=== PATIENT | female | born 1990 | race Caucasian/White ===

== ENCOUNTER 2023-04-09 09:47 | Emergency (ER) | payer OTHER, SELFPAY ==
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
[2023-04-09 09:51] VITALS: BP 146/100; PULSE 85; O2SAT 98
[2023-04-09 09:58] VITALS: BP 137/89; PULSE 75; RESP 18; TEMP 36.4; O2SAT 96; BMI 32.9
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
--- NOTE | 2023-04-09 11:37 | PC.NURSE ---
pt has made multiple attempts to urinate for preg test- hands and dial inspector asked to draw blood as pt unable to urinate- pt declined blood to rn- hands and dial inspector talking w pt to emphasize the importance of testing and need for this. hands and dial inspector at bedside aware pt drowsy. talking.
--- NOTE | 2023-04-09 11:55 | PC.NURSE ---
pt remains unable to urinate in bed graham after raising bed per machine tool dresser aleja order- pt walked to bathroom per machine tool dresser aleja w collar on as pt state will not be able to urinate w/o walking.
--- NOTE | 2023-04-09 12:09 | PC.NURSE ---
ct called to notify urine pending
[2023-04-09 12:27] LABS: UPreg QC Valid YES; Urine Pregnancy NEGATIVE (NEGATIVE)
== END 2023-04-09 14:31 | disposition home or self-care (01) ==
PROVIDERS: Nurse Practitioner Family; Emergency Provider Emergency Medicine; PCP Internal Medicine
DX: S80.212A Abrasion, left knee, initial encounter (principal); S06.0X0A Concussion without loss of consciousness, initial encounter; S50.812A Abrasion of left forearm, initial encounter; R51.9 Headache, unspecified; M54.2 Cervicalgia; M25.562 Pain in left knee; V43.02XA Car driver injured in collision with other type car in nontraffic accident, initial encounter; Y93.9 Activity, unspecified; Y92.481 Parking lot as the place of occurrence of the external cause; Y99.9 Unspecified external cause status; Z79.899 Other long term (current) drug therapy
CPT/HCPCS: 70450; 72125; 73090; 73560; 81025; 99282; 99284

== ENCOUNTER 2024-04-21 19:29 | Emergency (ER) | payer OTHER, SELFPAY ==
[2024-04-21 19:48] VITALS: BP 143/90; PULSE 110; RESP 18; TEMP 36.8; O2SAT 100; BMI 27.2
--- NOTE | 2024-04-21 19:53 | ED_ITS ---
HPI - General Adult General Chief complaint: Urogenital-Female Stated complaint: yeast inf Time Seen by Provider: 04/21/24 21:50 Source: patient, RN notes reviewed and old records reviewed Mode of arrival: ambulatory Limitations: no limitations History of Present Illness ED Provider: Gudelia LUI narrative: [age] female who denies any past medical history presents for evaluation of vaginal pain and swelling. Patient reports she initially had some itching with whitish discharge 2 days ago. She used an [id number] Monistat suppository She reports that she brought this a year ago but had a around the house. She use this 2 days ago pain She woke up this morning with painful, swollen labia. She reports worsening whitish discharge Denies any burning with urination. Denies any fevers, chills, abdominal pain Patient states that she had a miscarriage about 2 months ago. She has not been sexually active since then and at that time she was tested for sexually transmitted infections. Related Data Previous Rx's ?Medication ?Instructions ?Recorded cefuroxime axetil 500 mg tablet 500 mg PO BID #10 tabs 04/21/24 fluconazole 100 mg tablet 100 mg PO ONCE #1 tab 04/21/24 (Diflucan) Allergies Allergy/AdvReac Type Severity Reaction Status Date / Time tioconazole Allergy Swelling Verified 04/21/24 22:18 [From Monistat 1 (tioconazole)] Review of Systems Constitutional: Constitutional: Denies body ache(s), Denies chills and Denies fever(s) Eyes: Eyes: Denies blurry vision ENT: Denies sore throat Cardiovascular: Cardiovascular: Denies chest pain and Denies dyspnea Respiratory: Respiratory: Denies cough and Denies dyspnea Gastrointestinal: Gastrointestinal: Denies abdominal pain, Denies nausea and Denies vomiting Genitourinary: Genitourinary: Reports genital pruritis, Reports pelvic pain, Reports vaginal discharge and Reports vaginal pruritus Musculoskeletal: Musculoskeletal: Denies back pain Integumentary/Breasts: Skin/Breast: Denies rash PMFSH Social History Social History Advance Directives: No Advance Directives Information Provided: No Physical Exam ED Vital Signs: Vital Signs - 24 hr 04/21/24 19:48 04/21/24 22:34 Temperature 98.3 F 98.3 F Pulse Rate 110 H 110 H Respiratory Rate 18 18 Blood Pressure 143/90 H 143/90 H Pulse Oximetry 100 100 Oxygen Delivery Method Room Air Room Air BMI result Body Mass Index 27.2 Const General: healthy appearing, comfortable, no acute distress, alert and awake Nutritional Appearance: well nourished Orientation/consciousness: patient oriented x3 HENMT Head: Yes normocephalic and Yes atraumatic Eyes Eyelids: Yes eyelids normal Conjunctivae: conjunctivae normal Sclerae: sclerae normal Corneas: corneas normal Pupils: Equal, round and reactive pupils present EOM: EOMs intact bilaterally Neck Neck: Yes full ROM Resp Effort & Inspection: normal respiratory effort, able to speak in complete se ntences and not labored Cardio Rate: regular rate Rhythm: regular rhythm GI Inspection: No distended Palpation (GI): Soft to palpation, not firm, nontender, no guarding and not rigid Other: External exam shows edematous labia majora. There is minimal whitish vaginal discharge. No significant erythema, no evidence of abscess Skin General skin exam: elasticity normal Neuro General: patient oriented x3 Cranial nerves: Yes Equal, round and reactive pupils present and Yes Bilaterally intact EOM present Cognition (Neuro): normal cognition Extrem Other: Moving all extremities well without any obvious deformities Course Course Course Narrative: RME: done by [facility]. Que presents to the ED due to vaginal itching, white dischage, and vaginal swelling. Patient denies any vaginal bleeding, or vaginal lesion. UA ordered Medications Administered Discontinued Medications Generic Name Dose Route Start Last Admin Trade Name Freq PRN Reason Stop Dose Admin Cefuroxime Axetil 500 mg 04/21/24 22:11 04/21/24 22:20 Cefuroxime Axetil 500 Mg Tablet PO 04/21/24 22:12 500 mg ONCE ONE Administration Fluconazole 150 mg 04/21/24 22:11 04/21/24 22:19 Fluconazole 150 Mg Tablet PO 04/21/24 22:12 150 mg ONCE ONE Administration Metronidazole 2,000 mg 04/21/24 22:11 04/21/24 22:20 Metronidazole 500 Mg Tablet PO 04/21/24 22:12 2,000 mg ONCE ONE Administration Medical Decision Making Medical Decision Making MDM Narrative: 33-year-old female presents for evaluation of vaginal itching and discharge. She reports that she has not been sexually active since her last pelvic exam by her OBGYN and she was negative for sexually transmitted infections. She was offered a full pelvic examination but declines. She did allow for external inspection. This is consistent with vaginitis likely related to an allergic reaction of the Monistat. Patient's urinalysis shows greater than 50 white cells. We will treat with cefuroxime b.i.d. x5 days. The patient was given Diflucan today and another prescription for 1 week from today for she completes her antibiotics. She he has had this medication in the past without any allergic reaction. The patient was offered to swab herself for bacterial vaginosis versus just get treated for it and she does not want any swabs, she is willing to accept metronidazole 2 g once treatment for BV. Differential Diagnosis Differential Diagnoses: The differential diagnosis associated with the presentation includes Vaginitis Yeast infection He denies this UTI Bacterial vaginosis Lab Data Labs: Lab Results 04/21/24 Range/Units 20:27 Urine Color Yellow Urine Appearance Cloudy Urine pH 7.0 (5.0-9.0) Ur Specific [place] 1.025 (1.005-1.025) Urine Protein Trace (Neg-Trace) mg/dL Urine Glucose (UA) Negative (Negative) mg/dL Urine Ketones Negative (Negative) mg/dL Urine Blood Negative (Negative) Urine Nitrite Negative (Negative) Ur Leukocyte Esterase Large (3+) H (Negative) Urine RBC 6-10 H (0-2) /HPF Urine WBC >50 H (0-5) /HPF Ur Squamous Epith Cells 6-10 (0-2) /HPF Urine Bacteria None Seen (None Seen) Hyaline Casts 0-2 (0-2) /LPF Urine Test NEGATIVE (NEGATIVE) Discharge Plan Discharge Clinical Impression: Vaginitis, Urinary tract infection Patient Disposition: Home, Self-Care Instructions: Vaginal Discharge (ED) Additional Instructions: You were treated for bacterial vaginosis and a yeast infection The swelling is likely related to an allergic reaction from the Monistat I recommend that you no longer use Monistat Take the antibiotics as prescribed for urinary tract infection. Take Diflucan again 1 week from today to help treat and prevent further yeast infection You may also use Benadryl 25 mg every 6 hours to help with the swelling Follow-up with your primary doctor, return for new or worsening symptoms Prescriptions: New cefuroxime axetil 500 mg tablet 500 mg PO BID Qty: 10 0RF fluconazole [Diflucan] 100 mg tablet 100 mg PO ONCE Qty: 1 0RF Rx Instructions: To take on 04/28/24 Stand Alone Forms: Work/School Release Interventions: ED Discharge Assessment Last Done: 04/21/24 22:34 Discharge Date/Time: 04/21/24 22:34 Print Language: [place]
[2024-04-21 20:35] LABS: Appearance Urine Cloudy; Color Urine Yellow; Glucose Urine UA Negative (Negative); Leukocyte Esterase Urine Large (3+) (Negative); Nitrite Urine Negative (Negative); Specific Gravity - Urine 1.025 (1.005-1.025); UMIC TRIGGER UACC YES; Urine Blood Negative (Negative); Urine Ketones Negative (Negative); Urine Protein Trace mg/dL (Neg-Trace)
[2024-04-21 20:36] LABS: UPreg QC Valid YES; Urine Pregnancy NEGATIVE (NEGATIVE)
[2024-04-21 20:47] LABS: Bacteria Urine None Seen (None Seen); Hyaline Casts Urine 0-2 /LPF (0-2); UACC Culture Trigger YES; WBC Urine >50 /HPF (0-5)
[2024-04-21] MEDS: Fluconazole 150 MG TABLET PO (22:19)
[2024-04-21] MEDS: cefuroxime axetiL 500 MG TABLET PO (22:20)
[2024-04-21] MEDS: metroNIDAZOLE 500 MG TABLET 2000 MG PO (22:20)
[2024-04-21 22:34] VITALS: BP 143/90; PULSE 110; RESP 18; TEMP 36.8; O2SAT 100
== END 2024-04-21 22:34 | disposition home or self-care (01) ==
PROVIDERS: Physician Assistant; Emergency Provider Emergency Medicine
DX: N76.0 Acute vaginitis (principal); N39.0 Urinary tract infection, site not specified; L29.2 Pruritus vulvae; Z79.899 Other long term (current) drug therapy
CPT/HCPCS: 81001; 81025; 87086; 99282; 99283

== ENCOUNTER 2024-10-13 11:18 | Emergency (ER) | payer OTHER, SELFPAY ==
[2024-10-13] VITALS (8 sets, daily range): BP systolic 120–151; BP diastolic 71–101; PULSE 80–117; RESP 20–26; TEMP 36.7–37.1; O2SAT 94–98; BMI 28.7
--- NOTE | ~2024-10-13 | XR_ITS ---
CLINICAL HISTORY: sob, wheezing 2 view chest x-ray Comparison: None Findings: The lungs are clear. Normal size heart. No acute fracture. IMPRESSION: 1. No acute cardiopulmonary abnormality. This document has been electronically signed by: Janel Holder on 10/13/2024 12:34:46
--- NOTE | 2024-10-13 11:20 | ED.ASTHMA ---
HPI - Asthma General Chief Complaint: Dyspnea Stated Complaint: sob, asthma Time Seen by Provider: 10/13/24 11:41 Source: patient Mode of arrival: ambulatory Limitations: no limitations History of Present Illness ED Provider: Biju Kennedy DO HPI Narrative: 34-year-old female with history of moderate persistent asthma who ran out of her Flovent and albuterol 1 month ago but now has insurance who smokes cannabis is presenting for worsening shortness of breath and wheezing for the last couple of days. Patient also reports a cough occasionally productive of clear and yellow sputum. She reports mild chest pain only with the cough, otherwise denies chest pain or exertional symptoms. She denies fevers, rigors, lower extremities pain or swelling, abdominal pain, nausea, vomiting, diarrhea or any additional symptoms. No sick contacts. Patient has not followed with a vocational placement specialist recently. Related Data Previous Rx's ?Medication ?Instructions ?Recorded cefuroxime axetil 500 mg tablet 500 mg PO BID #10 tabs 04/21/24 fluconazole 100 mg tablet 100 mg PO ONCE #1 tab 04/21/24 (Diflucan) albuterol sulfate 90 mcg/actuation 2 puff inhalation Q4-6H PRN 10/13/24 aerosol inhaler shortness of breath or wheezing #8.5 grams fluticasone propionate 250 2 inh inhalation BID #60 ea 10/13/24 mcg/actuation blister powder for inhalation prednisone 50 mg tablet 50 mg PO DAILY 5 days #5 tabs 10/13/24 Allergies Allergy/AdvReac Type Severity Reaction Status Date / Time tioconazole Allergy Swelling Verified 10/13/24 11:22 [From Monistat 1 (tioconazole)] Review of Systems Review of Systems: Yes all other systems are reviewed and are negative PMFSH Social History Social History Advance Directives: Yes Advance Directives Information Provided: Yes Advance Directives on File: No Physical Exam Vital Signs: Vital Signs: Last Vital Signs Temp 98.1 F 10/13/24 11:59 Pulse 117 H 10/13/24 13:22 Resp 20 10/13/24 13:22 BP 120/94 H 10/13/24 11:59 Pulse Ox 98 10/13/24 11:59 O2 Del Method Room Air 10/13/24 11:59 BMI result Body Mass Index 28.7 Constitutional: ?Alert, oriented, speaking in full sentences HEENT: ?Normocephalic, atraumatic. Eyes: ?PERRL, EOMI Neck: ?Supple, nontender Chest: ?No chest wall tenderness Respiratory: ?Mild tachypnea, mild retractions of anterior chest wall, good air exchange with expiratory wheezing and prolonged expiratory phase throughout all lung gastelum Cardio: ?Regular rate and rhythm, no murmur, 2+ radial and DP pulses symmetrically GI: ?Soft, nondistended, nontender Back: ?Normal range of motion, nontender Skin: ?No rash, no lesions Neuro: ?Alert and oriented to person, place and time, moves all 4 extremities, no focal deficits Extremities: ?No swelling or tenderness, full range of motion Psych: ?Calm, alert and cooperative, appropriate behavior Course Course Course Narrative: This is a Rapid Medical Examination (RME) performed by Jackelyn Bacon PA-C in triage. Full HPI, ROS, assessment and treatment plan per primary provider in the Main ED. 34 yo female with history of moderate persistent asthma, marijuana smoker who presents to the ER for evaluation of worsening SOB and wheezing for the last 2 days. Recently ran out of her flovent and albuterol 1 month ago. Now has insurance. Saturating well on RA, mild tachypnea. Has bilateral inspiratory and expiratory wheezing on exam. Able to speak in complete sentences. Plan: CXR, viral swab. ED bronch protocol ordered. Medications Administered Discontinued Medications Generic Name Dose Route Start Last Admin Trade Name Freq PRN Reason Stop Dose Admin Albuterol Sulfate 5 mg/ 7.5 mg 10/13/24 12:05 10/13/24 12:11 Albuterol Sulfate 2.5 mg INHALE 10/13/24 12:06 7.5 mg ONCE ONE Administration Albuterol Sulfate 2 puff 10/13/24 12:40 10/13/24 12:46 Albuterol Sulfate 90 Mcg 8 Gm Inhaler INHALE 10/13/24 12:41 2 puff ONCE ONE Administration Albuterol Sulfate 5 mg/ 0 mg 10/13/24 11:44 10/13/24 11:50 Albuterol/Ipratropium 3 ml INHALE 10/13/24 11:45 7.5 each ONCE ONE Administration Albuterol Sulfate 2.5 mg/ 0 mg 10/13/24 13:18 10/13/24 13:20 Albuterol/Ipratropium 3 ml INHALE 10/13/24 13:19 5 dose ONCE ONE Administration Prednisone 50 mg 10/13/24 12:12 10/13/24 12:34 Prednisone 10 Mg Tablet PO 10/13/24 12:13 50 mg ONCE ONE Administration Medical Decision Making Medical Decision Making MDM Narrative: This is a well-appearing, pleasant patient presenting with signs and symptoms consistent with asthma exacerbation. I do not suspect PE, pneumonia or any other dangerous causes of dyspnea. The patient has bilateral expiratory wheezing with prolonged expiratory phase. She reports significant improvement with a DuoNeb and has been treated additionally with albuterol nebulizer. We will monitor for improvement further, treat with prednisone and anticipate discharge to home with prescriptions for fluticasone and rescue albuterol inhaler as the patient has had these in the past. She is instructed on how to use a spacer with the inhaler and instructed to continue 4 puffs every 4 hours for the next 24 hours as well as follow up with a primary care provider and vocational placement specialist for further management. Return precautions provided as well. The patient is comfortable with this plan and has no further questions. Patient received a total of 1 DuoNeb, 2 albuterol nebulizers and 4 puffs via MDI. With the treatment her symptoms and wheezing improve and she is resting comfortably at time of discharge, is able to ambulate without desaturating. Admission/Observation Consideration of admission/observation: Escalation of care including admission/observation considered Lab Data Labs: Lab Results 10/13/24 Range/Units 11:46 Influenza Type A (PCR) NEGATIVE (Negative) Influenza Type B (PCR) NEGATIVE (Negative) RSV RNA Qual (PCR) NEGATIVE (Negative) SARS-CoV-2 RNA (RT-PCR) NEGATIVE (Negative) Independent Interpretation I performed an independent interpretation of an: Plain X-Ray Interpretation: Chest x-ray per my independent interpretation shows no acute cardiopulmonary abnormalities. Radiology Impression Discussion of test interpretation with radiology: I have reviewed the radiologist's reading. Discharge Plan Discharge Clinical Impression: Asthma with exacerbation Patient Disposition: Home, Self-Care Instructions: Asthma (ED) Additional Instructions: We evaluated you in the Emergency Department (ED) and believe that you have an exacerbation (worsening) of your asthma. Asthma is caused by inflammation and tightening of muscles in the airway. ? You were given breathing treatments and steroids, and your breathing improved. These medications will help with your current attack. A visit to the ED is a warning sign that your asthma may not be managed adequately. Asthma is a chronic condition that cannot be cured, but medications can help control your symptoms. Steps to take at home: Use your albuterol (inhaler or nebulizer) as directed for your symptoms (2-4 puffs every 4 hours for the next 24 hours, then as needed for wheezing or difficulty breathing). We recommend using a spacer to help deliver the medication to your lungs more effectively. Take the steroids (dexamethasone or prednisone) as directed to help reduce lung inflammation and decrease the risk of another attack in the next few days. Follow up with your primary care doctor or vocational placement specialist (lung doctor) within one week to discuss your symptoms. They can talk with you about daily medications to help prevent asthma attacks (we represcribed your inhalers). Ask them about writing an ?asthma action plan? to prepare for future asthma exacerbations. Please speak to your doctor or come back to the ED for new symptoms, such as difficulty breathing that doesn?t improve with your medications, chest pain, voice changes, fevers (over 100.4 F), confusion, or other new or worsening symptoms. . Thank you for choosing us for your care. Prescriptions: New fluticasone propionate 250 mcg/actuation blister with device 2 inh inhalation BID Qty: 60 0RF prednisone 50 mg tablet 50 mg PO DAILY 5 Days Qty: 5 0RF albuterol sulfate 90 mcg/actuation HFA aerosol inhaler 2 puff inhalation Q4-6H PRN (Reason: shortness of breath or wheezing) Qty: 8.5 0RF No Action cefuroxime axetil 500 mg tablet 500 mg PO BID Qty: 10 0RF fluconazole [Diflucan] 100 mg tablet 100 mg PO ONCE Qty: 1 0RF Rx Instructions: To take on 04/28/24 Referrals: [facility] [Provider Group] (History of asthma, currently on Flovent b.i.d., multiple exacerbations) Print Language: Ukrainian
[2024-10-13] MEDS: Albuterol Sulfate 5 MG, Albuterol/Iprat 2.5/0.5MG 3 ML 3 ML INHALE (11:50)
[2024-10-13] MEDS: Albuterol Sulfate 5 MG, Albuterol Sulfate (0.083%) 2.5 MG 7.5 MG INHALE (12:11)
[2024-10-13 12:26] LABS: Influenza A PCR NEGATIVE (Negative); Influenza B PCR NEGATIVE (Negative); Resp Syncy Virus RNA Qual PCR NEGATIVE (Negative); SARS COV2 PCR INHOUSE NEGATIVE (Negative)
[2024-10-13] MEDS: predniSONE 10 MG TABLET 50 MG PO (12:34)
--- NOTE | 2024-10-13 12:37 | PC.NURSE ---
patient reporting improvement s/p updrafts. medicated per the SEP.
[2024-10-13] MEDS: Albuterol Sulfate 90 MCG 8 GM INHALER 2 PUFF INHALE (12:46)
[2024-10-13] MEDS: Albuterol Sulfate 2.5 MG, Albuterol/Iprat 2.5/0.5MG 3 ML 3 ML INHALE (13:20)
== END 2024-10-13 15:09 | disposition home or self-care (01) ==
PROVIDERS: Physician Assistant; Emergency Provider Emergency Medicine
DX: J45.901 Unspecified asthma with (acute) exacerbation (principal); R06.02 Shortness of breath; Z03.818 Encounter for observation for suspected exposure to other biological agents ruled out
CPT/HCPCS: 0241U; 71046; 94640; 99284; 99285

== ENCOUNTER → 2024-10-13 11:22 | Outpatient (BNV) | payer OTHER, SELFPAY | PROVIDERS: Emergency Provider Emergency Medicine; Visit Provider Radiology Vascular & Interventional Radiology | DX: R06.02 Shortness of breath (principal); R06.2 Wheezing | CPT/HCPCS: 71046 ==

== ENCOUNTER 2024-10-29 17:11 | Emergency (ER) | payer OTHER, SELFPAY ==
--- OUTSIDE RECORDS SUMMARY | 2024-10-29 19:16 | XMS_ITS | Clinical Summary ---
Author Organization [facility] [address] [place] [address] [place] [phone] Phone Care Team Providers Care Seconds Handler Name Role Phone Courtney Hickman MD Primary Care Pr ovider Allergies No known active allergies Medications albuterol 2.5 mg /3 mL (0.083 %) nebulizer solution Take 1 Vial by nebulization every 4 hours as needed for Wheezing or Shortness of Breath (EMERGENCY USE ONLY). 2 Active albuterol HFA (PROAIR HFA ; PROVENTIL HFA ; VENTOLIN HFA) 90 mcg/actuation inhaler Inhale 2 Puffs into the lungs every 4 hours as needed for Wheezing or Shortness of Breath (EMERGENCY USE ONLY). 3 Active fluticasone HFA (Flovent HFA) 110 mcg/actuation inhaler Take 1 puff by mouth 2 (two) times a day. 3 Active norethindrone (MURTAZA,Ginger FAY,MICRONOR ) 0.35 mg tablet Take 1 tablet (0.35 mg total) by mouth. 3 Active fluconazole (DIFLUCAN) 150 mg tablet Take one tablet today and repeat the dose in 3 days if there is no improvement 2 tablet 5 Active Active Problems Problem Noted Date Diagnosed Date Anxiety 07/28/2024 Acne 04/06/2012 Overview (07/28/2024): Last Assessment & Plan: Started on acne gels Depression 04/07/2011 Overview (07/28/2024): Therapist Dr Jimenez weekly [facility] since 5-11 prozac in past d/c 7-11 by pt 04/11 increased dose of prozac to 30 mg, c/w counseling Asthma, mild persistent 01/03/2011 Overview (07/28/2024): Last Assessment & Plan: flovent at night. Albuterol prn Migraine 01/03/2011 Encounters Date Type Department Care Team Description 09/03/2024 10:00 AM EST Office Visit Obstetrics & Gynecology - [address] [id number] Tammie Christine CNM Acute vaginitis (Primary Dx); Screen for STD (sexually transmitted disease) from Last 3 Months Immunizations Name Administration Dates Next Due DTP 03/06/1996, 4,04/09/1992,02/02,1991 [id number] (Pentacel) 2mo to less than 5yo 12/11/1992,04/09/1992,02/03/1992,10/07 HPV, Quadrivalent 03/27/2009,11/21/2008,04/18/20 07 Hepatitis B Pediatric (Enger ix B; Recombivax HB) to less than 20 yo 03/06/1999,08/08/1997,05/20/1996 Influenza trivalent, 0.5mL, preservative free (Fluarix; FluLaval; Fluzone) ages 6mo and older (Afluria) 3 years and older 04/06/2012,04/07/2011,04/06/2010 MMR, measles mumps and rubel la Live (Priorix; M-M-R II) 12mo and older 05/20/1996,12/11/1992 Meningococcal MCV4P 04/18/2007 OPV 03/06/1996, 4,02/03/1992,10/07 Td Tetanus diptheria (Tdvax) 7yo and older 06/25/2002 Tdap Tetanus diptheria acell ular pertussis (Boostrix; Adacel) 7yo and older 02/17/2015,02/08/2012,04/18/2007 Varicella live (Varivax) 12m o and older 08/14/1992 Surgical History Surgery Date Site/Laterality Comments NO PAST SURGERIES PROCEDURE: DENIES PREVIOUS SURGERY Medical History Medical History Date Comments Exercise-induced asthma DX:Exerc ise-induced asthma Dysmenorrhea in the adolescent 11/21/2008 D X:Dysmenorrhea in the adolescent Behavior disturbance 11/21/2008 DX:Behavior disturbance Depression 04/07/2011 DX:Depression Migraine 01/08 DX:Migraine; COM MENT: with aura Anxiety DX:Anxiety Anemia DX:Anemia Family History Medical History Relation Name Comments Migraines Mother Diabetes Mother's side 1 Hyperlipidemia Mother's side 2 Asthma Sister 1 Bipolar disorder Sister 2 Depression Sister 3 Relation Name Status Comments Mother Mother's side 1 Mother's side 2 Mother's side 3 Sister 1 Sister 2 Sister 3 Sister 4 Social History Tobacco Use Types Packs/Day Years Used Date Smoking Tobacco: Some Days Cigarettes Last attempted to quit: 06/30/2010 Smokeless Tobacco: Former Tobacco Cessation:Ready to Q uit: Not Asked; Counseling Given: Not Answered Alcohol Use Standard Drinks/Week Comments Yes 0 (1 standard drink = 0.6 oz pur e alcohol) Comments No Sex and Gender Information Value Date Recorded Sex Assigned at Not on file Legal Sex Female 12:22 AM EST Gender Identity Not on file Sexual Orientation Not on file Obstetrics History Para Term AB IAB SAB Ectopic Multiple Livin g Live Births 3 2 2 1 1 2 2 Date Outcome GA Total Labor Labor/2nd/3rd Weight Sex Type Anes PTL Katey A1 A5 Name Clin 9 IAB Decea sed 2011 Term 42w 0d 4111 g (145 oz) F CS-Un spec Spinal Livin g [facility] Comments:FTP 2014 Term 40w 1d 3204 g (113 oz) F Vag-S pont Epidur al Livin g 9 Souza Delivery Location:[facility] Comments:System Genera rebekah. Please review and update details. Last Filed Vital Signs Vital Sign Reading Time Taken Comments Blood Pressure 122/81 09/03/2024 9:12 AM EST Pulse 85 09/03/2024 9:12 AM EST Temperature - - Respiratory Rate - - Oxygen Saturation - - Inhaled Oxygen Concentration - - Weight 68.9 kg (152 lb) 09/03/2024 9:12 AM EST Height 157.5 cm (5' 2 ) 09/03/2024 9:12 AM EST Body Mass Index 27.8 09/03/2024 9:12 AM EST Plan of Treatment Upcoming Encounters Date Type Department Care Team (Late st Contact Info) Description 12/05/2024 9:45 AM EDT Office Visit Obstetrics & Gynecology - [address] [phone] Christine Tammie, CNM [address] [place] [address] Health Maintenance Due Date Last Done Comments Pneumococcal Vaccine: Pediatrics (0 to 5 Years) and At-Risk Patients (6 to 64 Years) (1 of 2 - PCV) 2010 Cervical Cancer Screening: Pap Smear 08/25/2017 08/25/2014 Cholesterol Screening (Lipid Panel) 07/03/2022 10/10/2016 Depression Screening 07/03/2022 Social Influencers of Health Screening 07/03/2022 COVID-19 Vaccine ( season) 2024 Influenza Vaccine (#1) 2024 2, 04/07/2011, 04/06/2010 DTaP,Tdap,and Td Vaccines (10 - Td or Tdap) 02/17/2025 02/17/2015, 02/08/2012, 04/18/2007, Additional history exists Varicella Vaccines Aged Out 08/14/1992 No longer eligible based on patient's age to complete this topic HIB Vaccines Completed 12/11/1992, 03/31, 02/03/1992, Additional history exists IPV Vaccines Completed 03/06/1996, 08/31, 12/11/1992, Additional history exists MMR Vaccines Completed 05/20/1996, 12/11/1992 Hepatitis B Vaccines Completed 03/06/1999, 08/08/1997, 05/20/1996 Meningococcal ACWY Vaccine Aged Out 04/18/2007 N o longer eligible based on patient's age to complete this topic HPV Vaccines Completed 03/27/2009, 10/30, 04/18/2007 Hepatitis C Screening Completed 04/15/2009 HIV Screening Completed 07/26/2011 Hepatitis A Vaccines Aged Out No long er eligible based on patient's age to complete this topic Meningococcal B Vacine Aged Out No lo nger eligible based on patient's age to complete this topic RSV Immunization Patients Under 20 months Aged Out No longer eligible based on patient's age to complete this topic Procedures Procedure Name Priority Date/Time Associated Diagnosis Comments TRICHOMONAS VAGINALIS ANTIGEN Routine 09/03/2024 9:22 AM EST Screen for STD (sexually transmitted disease) Acute vaginitis WET PREP, GENITAL Routine 09/03/2024 9:2 2 AM EST Screen for STD (sexually transmitted disease) Acute vaginitis CHLAMYDIA TRACHOMATIS AND NEISSERIA GONORRHOEAE PCR Routine 09/03/2024 9:22 AM EST Screen for STD (sexually transmitted disease) Acute vaginitis LIPID PANEL Routine 10/10/2016 HM PAP SMEAR Routine 08/25/2014 HIV SCREENING Routine 07/26/2011 HEPATITIS C SCREENING Routine 04/15/2009 from Last 3 Months or Most Recently Relevant to Health Maintenance Results * Trichomonas vaginalis antigen (09/03/2024 9:22 AM EST) Trichomonas vaginalis Negative Negative 09/03/2024 8:43 PM EST [facility] Swab Vaginal structure / Unknown Non-blood Collection / Unknown 09/03/2024 9:22 AM EST 09/03/2024 4:11 PM EST us Tammie Christine CNM LAB MICROBIOLOGY - GENERAL OR DERABLES Final Result [facility] [address] [place] [address], * Chlamydia trachomatis and Neisseria gonorrhoeae molecular study (09/03/2024 9:22 AM EST) Neisseria gonorrhoeae PCR Negative Negative LAB MOLECULAR DIAGNOSTICS METHOD 09/04/2024 11:23 AM EST [facility] Chlamydia trachomatis PCR Negative Negative LAB MOLECULAR DIAGNOSTICS METHOD 09/04/2024 11:23 AM EST [facility] Swab Cervix uteri structure / Unknown Non-blood Collection / Unknown 09/03/2024 9:22 AM EST 09/03/2024 4:11 PM EST [facility] MICROBIOLOGY - GENERAL OR DERABLES Final Result [facility] [address] [place] [address], [place] [phone] * (ABNORMAL) Wet prep, genital (09/03/2024 9:22 AM EST) Pathologist [facility] Clue Cells, Wet Prep Negative Negative 09/03/2024 8:41 PM EST [facility] Yeast, Wet Prep Positive(A) Negative 09/03/2024 8:41 PM [facility] Trichomonas, Wet Prep Indeterminate Negative 09/03/2024 8:41 PM EST [facility] Comment:Refer to Trichomonas antigen. Swab Vaginal structure / Unknown Non-blood Collection / Unknown 09/03/2024 9:22 AM EST 09/03/2024 4:11 PM EST [facility] MICROBIOLOGY - GENERAL OR DERABLES Final Result [facility] [address] [place] [address], [place] [phone] * Lipid panel (10/10/2016) LDL/HDL Ratio 2 0 - 4 Triglycerides 49 0 - 150 mg/dL Cholesterol 117 0 - 200 mg/dL HDL 51 >=40 mg/dL LDL Cholesterol 56 0 - 100 mg/dL Blood Venous blood specimen / Unknown [facility] Provider LAB BLOOD ORDERABLES Felicia l Result * Pap Smear (08/25/2014) Pathologist [facility] Pap smear NEGATIVE, ABSTRACTED [facility] Provider HEALTH MAINTENANCE Final Result * HIV Screening (07/26/2011) Pathologist [facility] HIV Screening ABSTRACTED [facility] Provider HEALTH MAINTENANCE Final Result * Hepatitis C Screening (04/15/2009) Pathologist [facility] Hepatitis C Screening ABSTRACTED [facility] Provider HEALTH MAINTENANCE Final Result from Last 3 Months or Most Recently Relevant to Health Maintenance Insurance [employer] Care Teams Seconds Handler Relationship Specialty Start Date End Date Courtney Hickman MD [address] [place] [id number] PCP - General 03/24/23
== END 2024-10-29 19:11 | disposition left against medical advice (07) ==
PROVIDERS: Emergency Provider Emergency Medicine
DX: J45.909 Unspecified asthma, uncomplicated (principal); Z53.21 Procedure and treatment not carried out due to patient leaving prior to being seen by health care provider

== ENCOUNTER 2025-04-10 03:16 | Emergency (ER) | payer OTHER, SELFPAY ==
--- NOTE | ~2025-04-10 | CT_ITS ---
CLINICAL HISTORY: left flank pain CT abdomen and pelvis without contrast Comparison: None provided Findings: The lung bases are clear. The unenhanced liver, gallbladder, spleen, adrenal glands and pancreas are unremarkable. No urinary calculus or obstructive uropathy. Significant fecal retention throughout the colon. No small bowel obstruction or free air Uterus and adnexa are unremarkable. No acute osseous finding. Impression: No urinary calculus or obstructive uropathy. Significant fecal retention noted throughout the colon. This document has been electronically signed by: Shaq Rios MD on 04/10/2025 05:07:39
[2025-04-10 03:19] VITALS: BP 142/91; PULSE 90; RESP 20; TEMP 36.6; O2SAT 98; BMI 32.9
[2025-04-10 03:34] LABS: MANUAL DIFF FLAG NO
[2025-04-10 03:36] LABS: Hematocrit 34.0 % (37.0-47.0); Hemoglobin 11.3 g/dl (12.0-16.0); Imm Gran Abs Auto 0.04 X10*3/uL (0.00-0.03); Imm Gran Pct Auto 0.5 % (0.0-0.4); Lymphocytes Absolute Auto 3.2 X10*3/uL (1.2-4.9); Mean Corpuscular HGB Conc 33.2 g/dl (31.0-35.0); Mean Corpuscular Hemoglobin 31.7 pg (27.0-33.0); Mean Corpuscular Volume 95.2 fL (80.0-98.0); NRBC Abs Auto 0.000 X10*3/uL (0.0-0.012); NRBC Pct Auto 0.0 /100WBC (0.0-0.2); Platelet Count 421 X10*3/uL (160-400); Red Blood Count 3.57 X10*6/uL (4.20-5.50); White Blood Count 8.6 X10*3/uL (4.8-10.8)
--- OUTSIDE RECORDS SUMMARY | 2025-04-10 03:52 | XMS_ITS ---
Author Name [facility] Organization Unknown Care Team Organization Name Specialty Phone Email Start Date End Da te [facility] Naomi Constantino Primary Care 06/07/2022
--- OUTSIDE RECORDS SUMMARY | 2025-04-10 03:52 | XMS_ITS | Clinical Summary ---
Author Organization [facility] [address] [place] [address] [place] [phone] Phone Care Team Providers Care Mutuel Clerk Name Role Phone Courtney Hickman MD Primary [...] Overview (07/28/2024): Therapist Dr Jimenez weekly [facility] since 5-11 prozac in past d/c 7-11 by pt 04/11 increased dose of prozac to 30 mg, c/w counseling Asthma, mild persistent 01/03/2011 Overview (07/28/2024): Last Assessment & Plan: flovent at night. Albuterol prn Migraine 01/03/2011 Immunizations Name Administration Dates Next Due DTP 03/06/1996, 4,04/09/1992,02/02,1991 [id number] (Pentacel) 2mo to less than 5yo 12/11/1992,04/09/1992,02/03/1992,10/07 [...] Sexual Orientation Not on file Obstetrics History * This document contains information received from the source organization and may not represent a complete record from that organization. Para Term AB IAB SAB Ectopic Multiple Livin g Live Births 3 2 2 2 2 Date Outcome GA Total Labor Labor/2nd/3rd Weight Sex Type Anes PTL Katey A1 A5 Name Clin 9 2011 Term 42w 0d 4111 g (145 oz) F CS-Un spec Spinal Livin g [facility] Comments:FTP 2014 Term 40w 1d 3204 g (113 oz) F Vag-S pont Epidur al Livin g 9 Souza Delivery Location:[facility] Comments:System Genera rebekah. Please review and update [...] 09/03/2024 9:12 AM EST Plan of Treatment Health Maintenance Due Date Last Done Comments Pneumococcal Vaccine: Pediatrics (0 to 5 Years) and At-Risk Patients (6 to 49 Years) (1 of 2 - PCV) 2010 Cervical Cancer Screening: Pap Smear 08/25/2017 08/25/2014 Cholesterol Screening (Lipid Panel) 07/03/2022 10/10/2016 Social Influencers of Health Screening 07/03/2022 Depression Screening 07/31/2024 DTaP,Tdap,and Td Vaccines (10 - Td or Tdap) 02/17/2025 02/17/2015, 02/08/2012, 04/18/2007, Additional history exists COVID-19 Vaccine ( season) 2025 Influenza Vaccine (#1) 2025 2, 04/07/2011, 04/06/2010 Varicella Vaccines Aged Out 08/14/1992 No longer [...] age to complete this topic Meningococcal B Vaccine Aged Out No l onger eligible based on patient's age to complete this topic RSV Immunization Patients Under 20 months Aged Out No longer eligible based on patient's age to complete this topic Procedures Procedure Name Priority Date/Time Associated Diagnosis Comments LIPID PANEL Routine 10/10/2016 PAP SMEAR Routine 08/25/2014 HIV SCREENING Routine 07/26/2011 HEPATITIS C SCREENING Routine 04/15/2009 from Last 3 Months or Most Recently Relevant to Health Maintenance Results * Lipid panel (10/10/2016) [facility] LDL/HDL Ratio 2 0 - 4 Triglycerides 49 0 - 150 mg/dL Cholesterol 117 0 - 200 mg/dL HDL 51 >=40 mg/dL LDL Cholesterol 56 0 - 100 mg/dL Blood Venous blood specimen / Unknown [facility] Provider LAB BLOOD ORDERABLES Felicia l Result * Pap Smear (08/25/2014) [facility] Pap smear NEGATIVE, ABSTRACTED [facility] Provider HEALTH MAINTENANCE Final Result * HIV Screening (07/26/2011) [facility] HIV Screening ABSTRACTED [facility] Provider HEALTH MAINTENANCE Final Result * Hepatitis C Screening (04/15/2009) [facility] Hepatitis C Screening ABSTRACTED [facility] Provider HEALTH MAINTENANCE Final Result from Last 3 Months or Most Recently Relevant to Health Maintenance Insurance [facility] [employer] Care Teams Mutuel Clerk Relationship Specialty Start Date End Date Courtney Hickman MD [address] [place] [address] PCP - General 03/24/23
[2025-04-10 03:55] LABS: Alanine Aminotransferase 14 U/L (0-31); Albumin Level 3.8 g/dL (3.5-5.0); Alkaline Phosphatase 78 U/L (39-117); Anion Gap 13 (12-20); Aspartate Amino Transferase 22 U/L (5-31); Blood Urea Nitrogen 11 mg/dL (9-16); Calcium 8.9 mg/dL (8.4-10.2); Carbon Dioxide 26 mmol/L (22-29); Chloride 106 mmol/L (96-108); Creatinine Clr Calc Pharmacy 86.1; Estimated Glomerular Filt Rate > 60; Lipase 50 U/L (8-78); Potassium 3.8 mmol/L (3.3-5.1); Sodium 141 mmol/L (135-145); Total Protein 6.7 g/dL (6.5-8.0)
[2025-04-10 04:27] LABS: Appearance Urine Clear; Glucose Urine UA Negative (Negative); PH 5.5 (5.0-9.0); Specific Gravity - Urine 1.025 (1.005-1.025); UMIC TRIGGER UACC YES
[2025-04-10 04:39] LABS: UACC Culture Trigger YES
--- NOTE | 2025-04-10 05:14 | ED.GENADULT ---
HPI - General Adult General Chief complaint: Back Pain/Injury Stated complaint: Severe abd and back pain Time Seen by Provider: 04/10/25 04:12 Source: patient Limitations: no limitations History of Present Illness ED Provider: Sonia Marquez PA-C HPI narrative: 34-year-old female presents with left flank pain x1 week. Patient states her discomfort has gotten progressively worse. Pain over mid to lower flank with radiation to mid to lower abdomen. Pain fluctuates in intensity, becoming severe at times. Associated nausea, dysuria and hematuria. The patient states she does have her menstrual cycle, she thought her discomfort was secondary to period cramps. Denies mid back pain, fever or history of kidney stones. Denies diarrhea. Denies constipation Related Data Previous Rx's ?Medication ?Instructions ?Recorded cefuroxime axetil 500 mg tablet 500 mg PO BID #10 tabs 04/21/24 fluconazole 100 mg tablet 100 mg PO ONCE #1 tab 04/21/24 (Diflucan) albuterol sulfate 90 mcg/actuation 2 puff inhalation Q4-6H PRN 10/13/24 aerosol inhaler shortness of breath or wheezing #8.5 grams fluticasone propionate 250 2 inh inhalation BID #60 ea 10/13/24 mcg/actuation blister powder for inhalation prednisone 50 mg tablet 50 mg PO DAILY 5 days #5 tabs 10/13/24 cephalexin 500 mg capsule 500 mg PO Q12H #13 caps 04/10/25 Allergies Allergy/AdvReac Type Severity Reaction Status Date / Time tioconazole (From Monistat 1 Allergy Swelling Verified 04/10/25 03:20 (tioconazole)) Review of Systems Review of Systems: Yes all other systems are reviewed and are negative Constitutional: Constitutional: Denies fatigue and Denies fever(s) Cardiovascular: Cardiovascular: Denies chest pain and Denies dyspnea Respiratory: Respiratory: Denies cough and Denies dyspnea Gastrointestinal: Gastrointestinal: Reports abdominal pain, Denies constipation, Denies diarrhea, Reports nausea and Denies vomiting Genitourinary: Genitourinary: Reports hematuria, Reports dysuria and Reports flank pain Musculoskeletal: Musculoskeletal: Denies back pain Endocrine: Endocrine: Denies fatigue PMFSH Past Medical History Attestation statement: The following information was validated with the patient. Physical Exam ED Vital Signs: Vital Signs - 24 hr 04/10/25 03:19 Temperature 97.8 F Pulse Rate 90 Respiratory Rate 20 Blood Pressure 142/91 H Pulse Oximetry 98 Oxygen Delivery Method Room Air BMI result Body Mass Index 32.9 Const Other: Alert well-appearing Orientation/consciousness: patient oriented x3 Resp Effort & Inspection: normal respiratory effort Cardio Other: Normal peripheral perfusion GI Other: Soft, nondistended nontender no guarding General: Yes no CVA tenderness Back/Spine/Pelvis Back: no CVA tenderness Skin Other: Warm dry no rash Neuro General: patient oriented x3, gait normal, no focal motor deficits and CN's II-XI intact bilaterally Psych Other: Cooperative Medications Administered Discontinued Medications Generic Name Dose Route Start Last Admin Trade Name Freq PRN Reason Stop Dose Admin Cephalexin HCl 500 mg 04/10/25 05:25 04/10/25 06:59 Cephalexin 500 Mg Capsule PO 04/10/25 05:26 500 mg ONCE ONE Administration Sodium Chloride 1,000 mls @ 999 mls/hr 04/10/25 04:15 04/10/25 05:44 Ns IV 04/10/25 05:15 Infused .Q1H1M MONY Infusion Ketorolac Tromethamine 15 mg 04/10/25 04:12 04/10/25 04:43 Ketorolac Tromethamine 15 Mg/Ml Vial IVPUSH 04/10/25 04:13 15 mg ONCE ONE Administration Morphine Sulfate 4 mg 04/10/25 04:12 04/10/25 04:43 Morphine Sulfate 4 Mg/Ml Cartridge IVPUSH 04/10/25 04:13 4 mg ONCE ONE Administration Protocol Ondansetron HCl 4 mg 04/10/25 04:12 04/10/25 04:43 Ondansetron Hcl 4 Mg/2 Ml Vial IVPUSH 04/10/25 04:13 4 mg ONCE ONE Administration Medical Decision Making Medical Decision Making MDM Narrative: 34-year-old female presents with left flank pain x1 week. Patient states her discomfort has gotten progressively worse. Pain over mid to lower flank with radiation to mid to lower abdomen. Pain fluctuates in intensity, becoming severe at times. Associated nausea, dysuria and hematuria. The patient states she does have her menstrual cycle, she thought her discomfort was secondary to period cramps. Denies mid back pain, fever or history of kidney stones. Denies diarrhea. Denies constipation. No chronic issues History: Per patient I have considered the following differential diagnoses: Renal colic, pyelonephritis, UTI, diverticulitis, pancreatitis Plan: Patient with a overall benign abdominal exam, her vitals are stable, she has no CVA tenderness to suggest pyelonephritis. She is having urinary symptoms with flank pain, could be renal colic. Obtaining a CT scan. Thought about diverticulitis, however there was no focal left lower quadrant pain she has no diarrhea. Thought about pancreatitis, however there was no focal left upper quadrant abdominal pain she is not actively vomiting. I have independently reviewed the following tests: Labs: No hematuria, no nitrite trace bacteria, moderate amount of leukocytes, does not appear contaminated CT abd/pelvis: mpression: No urinary calculus or obstructive uropathy. Significant fecal retention noted throughout the colon. Differential Diagnosis Differential Diagnoses: The differential diagnosis associated with the presentation includes See medical decision-making Admission/Observation Consideration of admission/observation: Escalation of care including admission/observation considered Not applicable Lab Data MDM Lab Attestation statement: I reviewed the patient's lab results. 04/10/25 03:30 04/10/25 03:30 Labs: Lab Results 04/10/25 04/10/25 Range/Units 03:30 04:20 WBC 8.6 (4.8-10.8) X10*3/uL RBC 3.57 L (4.20-5.50) X10*6/uL Hgb 11.3 L (12.0-16.0) g/dl Hct 34.0 L (37.0-47.0) % MCV 95.2 (80.0-98.0) fL MCH 31.7 (27.0-33.0) pg MCHC 33.2 (31.0-35.0) g/dl RDW 15.0 (11.0-16.0) % Plt Count 421 H (160-400) X10*3/uL MPV 9.2 L (9.4-12.3) fL Immature Gran % (Auto) 0.5 H (0.0-0.4) % Neut % (Auto) 48.1 (45-73) % Lymph % (Auto) 37.7 (20-40) % [place] % (Auto) 8.5 (2-11) % Eos % (Auto) 4.7 H (0-4) % Baso % (Auto) 0.5 (0-2) % Lymph # (Auto) 3.2 (1.2-4.9) X10*3/uL [place] # (Auto) 0.7 (0.1-1.2) X10*3/uL Eos # (Auto) 0.4 (0.0-0.4) X10*3/uL Baso # (Auto) 0.0 (0.0-0.2) X10*3/uL Abs Immat Gran (auto) 0.04 H (0.00-0.03) X10*3/uL Absolute Neuts (auto) 4.1 (2.0-8.3) x10*3/uL Absolute Nucleated RBC 0.000 (0.0-0.012) X10*3/uL Nucleated RBC % (auto) 0.0 (0.0-0.2) /100WBC Sodium 141 (135-145) mmol/L Potassium 3.8 (3.3-5.1) mmol/L Chloride 106 (96-108) mmol/L Carbon Dioxide 26 (22-29) mmol/L Anion Gap 13 (12-20) BUN 11 (9-16) mg/dL Creatinine 0.92 (0.5-1.4) mg/dL Estim Creat Clear Calc 86.1 Estimated GFR > 60 Random Glucose 85 (60-115) mg/dL Calcium 8.9 (8.4-10.2) mg/dL Total Bilirubin 0.1 (0.0-1.0) mg/dL AST 22 (5-31) U/L ALT 14 (0-31) U/L Alkaline Phosphatase 78 (39-117) U/L Total Protein 6.7 (6.5-8.0) g/dL Albumin 3.8 (3.5-5.0) g/dL Lipase 50 (8-78) U/L Beta HCG, Quant < 2 mIU/mL Urine Color Yellow Urine Appearance Clear Urine pH 5.5 (5.0-9.0) Ur Specific [place] 1.025 (1.005-1.025) Urine Protein Negative (Neg-Trace) mg/dL Urine Glucose (UA) Negative (Negative) mg/dL Urine Ketones Trace (Negative) mg/dL Urine Blood Negative (Negative) Urine Nitrite Negative (Negative) Ur Leukocyte Esterase Moderate (2+) H (Negative) Urine RBC 0-2 (0-2) /HPF Urine WBC >50 (0-5) /HPF Ur Squamous Epith Cells 3-5 (0-2) /HPF Urine Bacteria Trace (None Seen) Hyaline Casts 0-2 (0-2) /LPF Radiology Impression Discussion of test interpretation with radiology: I have reviewed the radiologist's reading. Discharge Plan Discharge Clinical Impression: Urinary tract infection, Constipation Patient Disposition: Home, Self-Care Instructions: Constipation (ED), Urinary Tract Infection in Women (ED) Additional Instructions: Overall your screening labs were normal, it appears you may have a urinary tract infection. See home care instructions. You were also found to be considerably constipated. Start using [id number] Colace twice a day. Start using [id number]-[id number]-[id number] MiraLax, several times a day until you begin having multiple large volume bowel movements. Follow up with primary care as needed. Prescriptions: New cephalexin 500 mg capsule 500 mg PO Q12H Qty: 13 0RF No Action cefuroxime axetil 500 mg tablet 500 mg PO BID Qty: 10 0RF fluconazole [Diflucan] 100 mg tablet 100 mg PO ONCE Qty: 1 0RF Rx Instructions: To take on 04/28/24 fluticasone propionate 250 mcg/actuation blister with device 2 inh inhalation BID Qty: 60 0RF prednisone 50 mg tablet 50 mg PO DAILY 5 Days Qty: 5 0RF albuterol sulfate 90 mcg/actuation HFA aerosol inhaler 2 puff inhalation Q4-6H PRN (Reason: shortness of breath or wheezing) Qty: 8.5 0RF Stand Alone Forms: Work/School Release Interventions: ED Discharge Assessment Last Done: 04/10/25 07:02 Discharge Date/Time: 04/10/25 07:27 Print Language: [place]ese
[2025-04-10 07:02] VITALS: BP 128/84; PULSE 75; RESP 16; TEMP 36.6; O2SAT 98
== END 2025-04-10 07:27 | disposition home or self-care (01) ==
PROVIDERS: Emergency Provider Emergency Medicine
DX: N39.0 Urinary tract infection, site not specified (principal); K59.00 Constipation, unspecified; R11.0 Nausea
CPT/HCPCS: 36415; 74176; 80053; 81001; 83690; 84702; 85025; 87086; 87088; 87186; 96361; 96374; 96375; 99283; 99284; J1885; J2270; J2405

== ENCOUNTER → 2025-04-10 04:12 | Outpatient (BNV) | payer OTHER, SELFPAY | PROVIDERS: Emergency Provider Emergency Medicine; Visit Provider Radiology Vascular & Interventional Radiology | DX: R10.32 Left lower quadrant pain (principal) | CPT/HCPCS: 74176 ==

== ENCOUNTER 2025-07-27 19:10 | Inpatient (IN) | payer OTHER, SELFPAY ==
[2025-07-27] VITALS (7 sets, daily range): BP systolic 144–166; BP diastolic 94–109; PULSE 76–89; RESP 16–22; TEMP 36.2–37.1; O2SAT 90–94; BMI 32.9
--- NOTE | ~2025-07-27 | XR_ITS ---
CLINICAL HISTORY: cough, SOB 2 view chest x-ray Comparison: CR - XR CHEST 2V - 10/13/24 11:27 EDT Findings: No consolidation or effusion. Heart size is normal. No acute fracture. IMPRESSION: 1. No acute findings. This document has been electronically signed by: Boogie Batista MD on 07/27/2025 20:22:41
--- NOTE | 2025-07-27 19:12 | ED_ITS ---
HPI - General Adult General Chief complaint: Asthma Stated complaint: asthma worsening, doesnt have a pump Time Seen by Provider: 07/27/25 19:33 Source: patient Mode of arrival: ambulatory Limitations: no limitations History of Present Illness ED Provider: Didier Muir HPI narrative: 35-year-old female with past medical history of asthma presents to ED for coughing for the past 2 day with asthma exacerbation and wheezing. Patient states she finished her inhaler trying to help her breathing. Patient denies any recent travel or recent surgery. Related Data Previous Rx's ?Medication ?Instructions ?Recorded albuterol sulfate 2.5 mg/3 mL 2.5 mg (3 mL) inhalation Q2H PRN 07/28/25 (0.083 %) solution for nebulization Shortness Of Breat h/Wheezing #180 mL albuterol sulfate 90 mcg/actuation 1 puff inhalation Q ID PRN 07/28/25 aerosol inhaler (Ventolin HFA) shortness of breath or wheezing #8.5 grams prednisone 20 mg tablet 40 mg (2 x 20 mg) PO DAILY # 8 tabs 07/28/25 Allergies Allergy/AdvReac Type Severity Reaction Status Date / Time tioconazole (From Monistat 1 Allergy Swelling Verified 07/27/25 19:15 (tioconazole)) Review of Systems 2 Review of Systems: Coughing, wheezing Yes all other systems are reviewed and are negative Physical Exam ED Vital Signs: Vital Signs - 24 hr 07/27/25 22:24 07/27/25 22:29 Pulse Rate 83 Respiratory Rate 16 Blood Pressure 146/94 H Pulse Oximetry 94 90 L Oxygen Delivery Method Room Air BMI result Body Mass Index 32.9 Const General: cooperative, healthy appearing, comfortable, no acute distress, well developed, alert, awake and Physically active Orientation/consciousness: patient oriented x3 HENMT Head: Yes normal to inspection, Yes No palpable skull fracture present, Yes normocephalic and Yes atraumatic Eyes General: appearance normal, both eyes and all related structures Neck Neck: Yes normal visual inspection, Yes full ROM, Yes no lymphadenopathy, Yes no meningeal signs, Yes trachea midline, Yes supple, No anterior neck swelling and No tender Chest Chest palpation & inspection: normal inspection of the chest and normal palpation of entire chest wall Resp Effort & Inspection: normal respiratory effort and able to speak in complete sentences Auscultation: wheezes expiratory wheezes and throughout (Also auditory) Cardio Jugular venous distension: no JVD Heart sounds: S1 normal heart sound present and S2 normal heart sound present GI Inspection: Yes normal to inspection Palpation (GI): Soft to palpation, not firm, nontender, no guarding and not rigid General: Yes no CVA tenderness Back/Spine/Pelvis Back: no CVA tenderness and No back tenderness Skin General skin exam: no rashes or lesions noted, elasticity normal and turgor normal Neuro General: patient oriented x3, gait normal, tone normal, moves all extremities, Normal light touch and pain sensation, no meningeal signs, no focal motor deficits, CN's II-XI intact bilaterally and normal sensation to monofilament Extrem General: Yes normal to inspection, Yes full ROM and Yes capillary refill normal Psych Appearance: grossly normal and not disheveled Course Course Course Narrative: Rapid medical examination performed in triage by Isabel Holland PA-C: Patient is a 35 year old female presenting to the emergency department with worsening wheezing / asthma symptoms. Detailed physical exam and review of systems are deferred to the after school program assistant. Imaging and swabs ordered. Patient placed back in the waiting room pending room availability and results. Medications Administered Discontinued Medications Generic Name Dose Route Start Last Admin Trade Name Freq PRN Reason Stop Dose Admin Albuterol/Ipratropium 3 ml 07/27/25 19:42 07/27/25 19:45 Albuterol/Iprat 2.5/0.5mg 3 Ml Ampul.Neb INHALE 07/27/25 19:43 3 ml ONCE ONE Administration Albuterol/Ipratropium 3 ml 07/28/25 08:00 07/28/25 11:40 Albuterol/Iprat 2.5/0.5mg 3 Ml Ampul.Neb INHALE 3 ml RQ4H WHILE AWAKE MONY Administration Albuterol Sulfate 2.5 mg/ 0 mg 07/27/25 21:23 07/27/25 21:25 Albuterol/Ipratropium 3 ml INHALE 07/27/25 21:24 5 dose ONCE ONE Administration Guaifenesin/Codeine Phosphate 10 ml 07/27/25 20:40 07/27/25 20:54 Guaifen/Codeine Sf 200/20/10ml 10 Ml Liquid PO 07/27/25 20:41 10 ml ONCE ONE Administration Magnesium Sulfate 2 gm in 50 mls @ 150 mls/hr 07/27/25 19:46 07/27/25 20:19 Magnesium Sulfate/H2o IV 07/27/25 20:05 Infused ONCE ONE Infusion Methylprednisolone Sodium Succinate 125 mg 07/27/25 19:46 07/27/25 19:58 Methylprednisolone Sod Succ 125 Mg/2 Ml Vial IVPUSH 07/27/25 19:47 125 mg ONCE ONE Administration Prednisone 40 mg 07/28/25 09:00 07/28/25 08:57 Prednisone 20 Mg Tablet PO 08/01/25 09:01 40 mg DAILY MONY Administration Sodium Chloride 3 ml 07/28/25 08:00 07/28/25 08:04 0.9 % Sodium Chloride Flush 3 Ml Syringe IVFLUSH Not Given QSHIFT [facility] Medical Decision Making Medical Decision Making [facility] Narrative: 35-year-old female presents to ED for shortness of breath URI symptoms with auditory wheezing. Asthma exacerbation. Patient has bronchodilator order. We will add Solu-Medrol magnesium and labs. 9:53pm: Patient is ambulatory oxygen saturation 88-91% on ambulation. Mother bronchodilator was ordered. Case present to hospitalist for admission. 10:17pm: Case discussed with Dr. Monge hospitalist who states after 2nd bronchodilators patient should be re-evaluated. 10:21pm: Repeat ambulatory oxygen saturation tests after 2nd bronchodilator O2 saturation 88-91%. Patient admitted to hospitalists Differential Diagnosis Differential Diagnoses: The differential diagnosis associated with the presentation includes (covid, influena, asthma, rsv, pneumoni) Lab Data 07/28/25 03:48 07/28/25 03:48 Labs: Lab Results 07/27/25 07/27/25 07/27/25 Range/Units 19:27 19:59 22:28 WBC 10.3 (4.8-10.8) X10*3/uL RBC 3.95 L (4.20-5.50) X10*6/uL Hgb 12.6 (12.0-16.0) g/dl Hct 37.7 (37.0-47.0) % MCV 95.4 (80.0-98.0) fL MCH 31.9 (27.0-33.0) pg MCHC 33.4 (31.0-35.0) g/dl RDW 13.8 (11.0-16.0) % Plt Count 328 (160-400) X10*3/uL MPV 9.6 (9.4-12.3) fL Immature Gran % (Auto) 0.2 (0.0-0.4) % Neut % (Auto) 55.3 (45-73) % Lymph % (Auto) 19.9 L (20-40) % [place] % (Auto) 4.8 (2-11) % Eos % (Auto) 19.2 H (0-4) % Baso % (Auto) 0.6 (0-2) % Lymph # (Auto) 2.1 (1.2-4.9) X10*3/uL [place] # (Auto) 0.5 (0.1-1.2) X10*3/uL Eos # (Auto) 2.0 H (0.0-0.4) X10*3/uL Baso # (Auto) 0.1 (0.0-0.2) X10*3/uL Abs Immat Gran (auto) 0.02 (0.00-0.03) X10*3/uL Absolute Neuts (auto) 5.7 (2.0-8.3) x10*3/uL Absolute Nucleated RBC 0.000 (0.0-0.012) X10*3/uL Nucleated RBC % (auto) 0.0 (0.0-0.2) /100WBC Sodium 141 (135-145) mmol/L Potassium 4.0 (3.3-5.1) mmol/L Chloride 112 H (96-108) mmol/L Carbon Dioxide 21 L (22-29) mmol/L Anion Gap 12 (12-20) BUN 10 (9-16) mg/dL Creatinine 0.66 (0.5-1.4) mg/dL Estim Creat Clear Calc 118.9 Estimated GFR > 60 Random Glucose 110 (60-115) mg/dL Calcium 8.6 (8.4-10.2) mg/dL Total Bilirubin 0.6 (0.0-1.0) mg/dL AST 25 (5-31) U/L ALT 18 (0-31) U/L Alkaline Phosphatase 66 (39-117) U/L Total Protein 6.6 (6.5-8.0) g/dL Albumin 4.0 (3.5-5.0) g/dL Beta HCG, Quant 129 mIU/mL Urine Color Yellow Urine Appearance Clear Urine pH 5.5 (5.0-9.0) Ur Specific [place] 1.020 (1.005-1.025) Urine Protein Negative (Neg-Trace) mg/dL Urine Glucose (UA) Negative (Negative) mg/dL Urine Ketones Negative (Negative) mg/dL Urine Blood Trace H (Negative) Urine Nitrite Negative (Negative) Ur Leukocyte Esterase Trace H (Negative) Urine RBC 3-5 H (0-2) /HPF Urine WBC 0-5 (0-5) /HPF Ur Squamous Epith Cells 3-5 (0-2) /HPF Urine Bacteria 2+ (None Seen) Hyaline Casts 0-2 (0-2) /LPF Influenza Type A (PCR) NEGATIVE (Negative) Influenza Type B (PCR) NEGATIVE (Negative) RSV RNA Qual (PCR) NEGATIVE (Negative) SARS-CoV-2 RNA (RT-PCR) NEGATIVE (Negative) Critical Care Time Critical Care Time Critical Care Time: Yes Total Critical Care Time: 60 Attestation: Auditory wheezing, hypoxic on ambulation, patietn given bronchodilator, solumedrol, and magneisum ordered. Patient admitted Discharge Plan Discharge Clinical Impression: Asthma with acute exacerbation Qualifiers: Asthma severity: severe Asthma persistence: persistent Qualified Code(s): J 45.51 - Severe persistent asthma with (acute) exacerbation Patient Disposition: Admitted As Inpatient Discharge Date/Time: 07/28/25 12:00
[2025-07-27] MEDS: Albuterol/Iprat 2.5/0.5MG 3 ML AMPUL.NEB INHALE (19:45)
[2025-07-27] MEDS: Magnesium Sulfate/H2O 2 GM/50 ML PIGGYBACK IV (19:59)
[2025-07-27 20:04] LABS: MANUAL DIFF FLAG NO
[2025-07-27 20:06] LABS: Hematocrit 37.7 % (37.0-47.0); Hemoglobin 12.6 g/dl (12.0-16.0); Imm Gran Abs Auto 0.02 X10*3/uL (0.00-0.03); Imm Gran Pct Auto 0.2 % (0.0-0.4); Lymphocytes Absolute Auto 2.1 X10*3/uL (1.2-4.9); Mean Corpuscular HGB Conc 33.4 g/dl (31.0-35.0); Mean Corpuscular Hemoglobin 31.9 pg (27.0-33.0); Mean Corpuscular Volume 95.4 fL (80.0-98.0); NRBC Abs Auto 0.000 X10*3/uL (0.0-0.012); NRBC Pct Auto 0.0 /100WBC (0.0-0.2); Platelet Count 328 X10*3/uL (160-400); Red Blood Count 3.95 X10*6/uL (4.20-5.50); White Blood Count 10.3 X10*3/uL (4.8-10.8)
[2025-07-27 20:09] LABS: Resp Syncy Virus RNA Qual PCR NEGATIVE (Negative); SARS COV2 PCR INHOUSE NEGATIVE (Negative)
--- OUTSIDE RECORDS SUMMARY | 2025-07-27 20:15 | XMS_ITS | Clinical Summary ---
Author Organization [facility] [address] [place] [address] [place] [phone] Phone Care Team Providers Care Workers Compensation Adjuster Name Role Phone Courtney Hickman MD Primary [...] Overview (07/28/2024): Therapist Dr Jimenez weekly [facility] since 5-11 prozac in past d/c 7-11 by pt 04/11 increased dose of prozac to 30 mg, c/w counseling Asthma, mild persistent 01/03/2011 Overview (07/28/2024): Last Assessment & Plan: flovent at night. Albuterol prn Migraine 01/03/2011 Immunizations Immunization Administration Dates Next Due DTP 03/06/1996, 4,04/09/1992,02/02,1991 [id number] (Pentacel) 2mo to less than 5yo 12/11/1992,04/09/1992,02/03/1992,10/07 [...] Used Date Smoking Tobacco: Some Days Cigarettes 0 Last attempted to quit: 06/30/2010 Smokeless Tobacco: [...] oz) F CS-Un spec Spinal Livin g [facility] Comments:FTP 2014 Term 40w 1d 3204 g (113 oz) F Vag-S pont Epidur al Livin g 9 Souza Delivery Location:[facility] Comments:System Genera rebekah. Please review and [...] 04/18/2007, Additional history exists COVID-19 Vaccine ( - season) 2025 Influenza Vaccine (#1) 2025 2, 04/07/2011, 04/06/2010 RSV Immunization Adult Patients (1 - 1-dose 75+ series) 2066 Varicella Vaccines Aged Out 08/14/1992 No longer [...] Health Maintenance Results * Lipid panel (10/10/2016) LDL/HDL Ratio 2 0 - 4 Triglycerides 49 0 - 150 mg/dL Cholesterol 117 0 - 200 mg/dL HDL 51 >=40 mg/dL LDL Cholesterol 56 0 - 100 mg/dL Blood Venous blood specimen / Unknown [facility] Provider LAB BLOOD ORDERABLES Felicia l Result * Pap Smear (08/25/2014) Pathologist [facility] Pap smear NEGATIVE, ABSTRACTED [facility] Provider HEALTH MAINTENANCE Final Result * HIV Screening (07/26/2011) Pathologist [facility] HIV Screening ABSTRACTED [facility] Provider HEALTH MAINTENANCE Final Result * Hepatitis C Screening (04/15/2009) Pathologist [facility] Hepatitis C Screening ABSTRACTED [facility] Provider HEALTH MAINTENANCE Final Result from Last 3 Months or Most Recently Relevant to Health Maintenance Insurance [facility] [employer] Care Teams Workers Compensation Adjuster Relationship Specialty Start Date End Date Courtney Hickman MD [address] [place] [phone] PCP - General 03/24/23
[2025-07-27 20:21] LABS: Alanine Aminotransferase 18 U/L (0-31); Albumin Level 4.0 g/dL (3.5-5.0); Alkaline Phosphatase 66 U/L (39-117); Anion Gap 12 (12-20); Aspartate Amino Transferase 25 U/L (5-31); Blood Urea Nitrogen 10 mg/dL (9-16); Calcium 8.6 mg/dL (8.4-10.2); Carbon Dioxide 21 mmol/L (22-29); Chloride 112 mmol/L (96-108); Creatinine Clr Calc Pharmacy 118.9; Estimated Glomerular Filt Rate > 60; Potassium 4.0 mmol/L (3.3-5.1); Sodium 141 mmol/L (135-145); Total Protein 6.6 g/dL (6.5-8.0)
[2025-07-27] MEDS: guaiFEN/Codeine SF 200/20/10ML 10 ML LIQUID PO (20:54)
--- NOTE | 2025-07-27 21:10 | MHC.EDTECH ---
ambulation trial completed at this time. O2 sat primarily stayed at 91% but ranged from 89%-92% breifly at times. HR ranged from 90-100bpm
[2025-07-27] MEDS: Albuterol Sulfate 2.5 MG, Albuterol/Iprat 2.5/0.5MG 3 ML 3 ML INHALE (21:25)
--- NOTE | 2025-07-27 22:30 | PC.NURSE ---
Second walking O2 sat deasating to 90% on RA. Patient endorsing mild SOB/WOB when walking, improved from before. BING Velásquez made aware.
[2025-07-27 22:35] LABS: Appearance Urine Clear; Glucose Urine UA Negative (Negative); PH 5.5 (5.0-9.0); Specific Gravity - Urine 1.020 (1.005-1.025); UMIC TRIGGER UACC YES
--- NOTE | 2025-07-28 01:32 | P.HPHOSP_ITS ---
History of Present Illness Date of Service: 07/28/25 Attending physician on admission: April Juares Chief Complaint: Shortness of breadth Era Denson is a 35 years old woman with past medical history significant for asthma presents to the emergency department complaining of worsening shortness on breath over the last 2 days associated with nonproductive cough and wheezing. She uses her rescue inhaler multiple times without improvement of symptoms. She denied any chest pain, fever or chills. She is a tobacco smoker. Denied any acute gastrointestinal or genitourinary symptoms. She denied illicit drug use or alcohol abuse. In the ED, she was found to have tachypnea. Her blood pressure also was elevated at 166/109. Last BP is 146/94. Her oxygen saturation dropped to 88% with ambulation. Blood workup showed no leukocytosis. There is marked eosinophilia of 19.2. There are no significant electrolyte imbalances. Renal and liver functions are normal. Viral testing for COVID-19, influenza and RSV is negative. CXR is negative. ED Tx: Neb 3 mL inhaled, magnesium 2 g IV, Solu-Medrol 125 mg IV, guaifenesin/codeine 10 mL p.o and magnesium sulfate 2 g IV. Review of Systems 2 Review of Systems: All 12 systems were reviewed and normal except as noted in HPI. [facility] Social History Smoked in Last 30 Days: No Use of substances other than those prescribed or required for medical reasons: No Advance Directives: No Advance Directives Information Provided: No Do you have a plan to hurt others: No Plan Meds Allergies Allergy/AdvReac Type Severity Reaction Status Date / Time tioconazole (From Monistat 1 Allergy Swelling Verified 07/27/25 19:15 (tioconazole)) Active Medications: Current Medications Acetaminophen (Acetaminophen 325 Mg Tablet) 975 mg PO Q6H PRN PRN Reason: Pain, Mild 1-3,fever,headache Calcium Carbonate (Calcium Carbonate 750 Mg Tab.Chew) 750 mg PO Q4H PRN PRN Reason: Heartburn Magnesium Hydroxide (Milk Of Magnesia 30 Ml Oral.Susp) 30 ml PO DAILY PRN PRN Reason: Constipation Melatonin (Melatonin 3 Mg Tablet) 6 mg PO BEDTIME PRN PRN Reason: Insomnia Sodium Chloride (0.9 % Sodium Chloride Flush 3 Ml Syringe) 3 ml IVFLUSH QSHIFT [facility] Physical Exam 2 Vital Signs and Narrative: Vital Signs: Last Vital Signs Temp 97.2 F 07/27/25 21:09 Pulse 83 07/27/25 22:24 Resp 16 07/27/25 22:24 BP 146/94 H 07/27/25 22:24 Pulse Ox 90 L 07/27/25 22:29 O2 Del Method Room Air 07/27/25 22:24 BMI result Body Mass Index 32.9 General: Alert, oriented. Mild respiratory distress but speaking in short sentences. Well nourished and cooperative. Afebrile. HEENT: Head normocephalic, atraumatic. PER, EOMI. Sclerae anicteric, conjunctiva clear. Oropharynx without erythema or exudate. Mucous membranes moist. Neck: Supple, or JVD. Heart: RRR, no murmurs, rubs or gallops. Lungs: Tachypnea. End expiratory wheezes. No rhonchi or crackles. Abdomen: Soft, non tenderness, nondistended, normoactive bowel sounds. No hepatosplenomegaly, masses or masses. Extremities: No calf tenderness bilaterally, no swelling Musculoskeletal: Full range of motion. No joint swelling, deformity, or tenderness. Normal muscle tone and strength. Skin: Warm/Dry. No pallor. No jaundice. Neurologic: Alert & oriented x4. Moving all extremities spontaneously. Normal speech. Psychological: Normal mood and affect. Thought process coherent. Results Labs 07/27/25 19:59 07/27/25 19:59 Labs: Laboratory Results - last 24 hr 07/27/25 07/27/25 07/27/25 19:27 19:59 22:28 MCV 95.4 MCH 31.9 MCHC 33.4 RDW 13.8 Plt Count 328 MPV 9.6 Immature Gran % (Auto) 0.2 Neut % (Auto) 55.3 Lymph % (Auto) 19.9 L [place] % (Auto) 4.8 Eos % (Auto) 19.2 H Baso % (Auto) 0.6 Lymph # (Auto) 2.1 [place] # (Auto) 0.5 Eos # (Auto) 2.0 H Baso # (Auto) 0.1 Abs Immat Gran (auto) 0.02 Absolute Neuts (auto) 5.7 Absolute Nucleated RBC 0.000 Nucleated RBC % (auto) 0.0 Anion Gap 12 Estim Creat Clear Calc 118.9 Estimated GFR > 60 Random Glucose 110 Calcium 8.6 Total Bilirubin 0.6 AST 25 ALT 18 Alkaline Phosphatase 66 Total Protein 6.6 Albumin 4.0 Beta HCG, Quant 129 Urine Color Yellow Urine Appearance Clear Urine pH 5.5 Ur Specific [place] 1.020 Urine Protein Negative Urine Glucose (UA) Negative Urine Ketones Negative Urine Blood Trace H Urine Nitrite Negative Ur Leukocyte Esterase Trace H Urine RBC 3-5 H Urine WBC 0-5 Ur Squamous Epith Cells 3-5 Urine Bacteria 2+ Hyaline Casts 0-2 Influenza Type A (PCR) NEGATIVE Influenza Type B (PCR) NEGATIVE RSV RNA Qual (PCR) NEGATIVE SARS-CoV-2 RNA (RT-PCR) NEGATIVE Assessment and Plan (1) Acute asthma exacerbation: Qualifiers: Asthma severity: severe Asthma persistence: persistent Qualified Code(s): J45.51 - Severe persistent asthma with (acute) exacerbation Status: Acute (2) Tobacco dependence: Status: Acute Plan Era Densno is a 35 y/o woman who presents with: Acute exacerbation of asthma causing hypoxia with ambulation; severe persistent. Pulse oximetry. Supplemental O2 to keep O2 sats > 90%. Continue bronchodilator therapy and steroids. Check O2 sats with ambulation in the morning. Tobacco smoking. Tobacco cessation education. Code status: Full DVT prophylaxis: SCDs Patient will need hospitalization for at least 2 midnights for acute exacerbation of asthma causing hypoxia management with oxygen saturation monitoring, supplemental oxygen, bronchodilator therapy and systemic steroids. Quality Stroke Does the patient have a stroke diagnosis?: No VTE Prior VTE?: No VTE Risk Level:: Medical - low VTE Device Contraindication: N/A - Device Ordered VTE Drug Contraindication: N/A - Med Ordered
[2025-07-28 04:31] LABS: Hematocrit 39.4 % (37.0-47.0); Hemoglobin 12.7 g/dl (12.0-16.0); Imm Gran Abs Auto 0.03 X10*3/uL (0.00-0.03); Imm Gran Pct Auto 0.4 % (0.0-0.4); Lymphocytes Absolute Auto 0.4 X10*3/uL (1.2-4.9); MANUAL DIFF FLAG SCAN; Mean Corpuscular HGB Conc 32.2 g/dl (31.0-35.0); Mean Corpuscular Hemoglobin 31.0 pg (27.0-33.0); Mean Corpuscular Volume 96.1 fL (80.0-98.0); NRBC Abs Auto 0.000 X10*3/uL (0.0-0.012); NRBC Pct Auto 0.0 /100WBC (0.0-0.2); Platelet Count 350 X10*3/uL (160-400); Red Blood Count 4.10 X10*6/uL (4.20-5.50); SCAN SMEAR FLAG 1; White Blood Count 6.9 X10*3/uL (4.8-10.8)
[2025-07-28 04:49] LABS: Anion Gap 13 (12-20); Blood Urea Nitrogen 9 mg/dL (9-16); Calcium 9.1 mg/dL (8.4-10.2); Carbon Dioxide 19 mmol/L (22-29); Chloride 112 mmol/L (96-108); Creatinine Clr Calc Pharmacy 124.5; Estimated Glomerular Filt Rate > 60; Magnesium 2.3 mg/dL (1.6-2.6); Potassium 4.2 mmol/L (3.3-5.1); Sodium 140 mmol/L (135-145)
[2025-07-28 04:56] VITALS: BP 142/92; PULSE 83; RESP 16; TEMP 36.8; O2SAT 95
--- NOTE | 2025-07-28 08:22 | PHA.MEDREC ---
Addendum entered by Dax Rivas PharmD 07/28/25 08:26: reviewed Original Note: Pharmacy Consult ? Medication Reconciliation Pharmacy has completed the medication reconciliation. Spoke with pt and she confirmed she is not taking any medications at this time at home. Pt never started the Junel control and she states she is not taking any inhalers at this time.
[2025-07-28] MEDS: Albuterol/Iprat 2.5/0.5MG 3 ML AMPUL.NEB INHALE ×2 (08:33→11:40)
[2025-07-28 08:34] VITALS: PULSE 81; RESP 16; O2SAT 91
--- NOTE | 2025-07-28 10:05 | P.DS_ITS ---
DS: Providers Provider Date of admission: 07/27/25 23:59 Date of discharge: 07/28/25 Primary care physician: Naomi Constantino MD DS: Diagnosis Discharge Diagnosis (1) Acute asthma exacerbation: Status: Acute (2) Tobacco dependence: Status: Acute DS: Summary Hospital Course Hospital Course: HP as per admitting provider. Era Denson is a 35 years old woman with past medical history significant for asthma presents to the emergency department complaining of worsening shortness on breath over the last 2 days associated with nonproductive cough and wheezing. She uses her rescue inhaler multiple times without improvement of symptoms. She denied any chest pain, fever or chills. She is a tobacco smoker. Denied any acute gastrointestinal or genitourinary symptoms. She denied illicit drug use or alcohol abuse. In the ED, she was found to have tachypnea. Her blood pressure also was elevated at 166/109. Last BP is 146/94. Her oxygen saturation dropped to 88% with ambulation. Blood workup showed no leukocytosis. There is marked eosinophilia of 19.2. There are no significant electrolyte imbalances. Renal and liver functions are normal. Viral testing for COVID-19, influenza and RSV is negative. CXR is negative. ED Tx: Neb 3 mL inhaled, magnesium 2 g IV, Solu- Medrol 125 mg IV, guaifenesin/codeine 10 mL p.o and magnesium sulfate 2 g IV. 35 year old womed treated for Acute exacerbation of asthma causing hypoxia with ambulation. She was treated with IV solumedrol, scheudled duonebs. Initially she was hypoxic but after treatment she is now ambulating on room air. She will go home with prednisone, albuterol inhalor to use as needed and recommendation for nebulizer. Tobacco smoking. Tobacco cessation education. obesity class I. BMI 32.9. Discussed importance of weight management as this may be contributing to worsening of other comorbidities Time Attestation Discharge Coordination Time (in mins): 45 Quality: Safe Use of Opioids Does Pt have an Active Cancer Diagnosis on the Problem List?: No Quality: Stroke Does the patient have a stroke diagnosis?: No Physical Exam Exam: Exam: Appearing in no acute distress head is normocephalic atraumatic eyes pupils are PERRLA sclera is anicteric mouth throat mucous membranes are intact and moist neck is supple no lymphadenopathy, no JVD noted lung sounds mild exp wheezing heart regular rate rhythm, clear S1, S2 positive bowel sounds, abdomen is soft, nontender neuro patient is alert x3, no focal deficits Vital Signs: Vital Signs: Last Vital Signs Temp 98.3 F 07/28/25 04:56 Pulse 81 07/28/25 08:34 Resp 16 07/28/25 08:34 BP 142/92 H 07/28/25 04:56 Pulse Ox 95 07/28/25 04:56 O2 Del Method Room Air 07/28/25 04:56 BMI result Body Mass Index 32.9 DS: Data Data Completed and Pending Labs on day of discharge: Laboratory Results - last 24 hr 07/27/25 07/27/25 07/27/25 19:27 19:59 22:28 WBC 10.3 RBC 3.95 L Hgb 12.6 Hct 37.7 MCV 95.4 MCH 31.9 MCHC 33.4 RDW 13.8 Plt Count 328 MPV 9.6 Immature Gran % (Auto) 0.2 Neut % (Auto) 55.3 Lymph % (Auto) 19.9 L [place] % (Auto) 4.8 Eos % (Auto) 19.2 H Baso % (Auto) 0.6 Lymph # (Auto) 2.1 [place] # (Auto) 0.5 Eos # (Auto) 2.0 H Baso # (Auto) 0.1 Abs Immat Gran (auto) 0.02 Absolute Neuts (auto) 5.7 Absolute Nucleated RBC 0.000 Nucleated RBC % (auto) 0.0 Smear Tech's Comments Sodium 141 Potassium 4.0 Chloride 112 H Carbon Dioxide 21 L Anion Gap 12 BUN 10 Creatinine 0.66 Estim Creat Clear Calc 118.9 Estimated GFR > 60 Random Glucose 110 Calcium 8.6 Magnesium Total Bilirubin 0.6 AST 25 ALT 18 Alkaline Phosphatase 66 Total Protein 6.6 Albumin 4.0 Beta HCG, Quant 129 Urine Color Yellow Urine Appearance Clear Urine pH 5.5 Ur Specific [place] 1.020 Urine Protein Negative Urine Glucose (UA) Negative Urine Ketones Negative Urine Blood Trace H Urine Nitrite Negative Ur Leukocyte Esterase Trace H Urine RBC 3-5 H Urine WBC 0-5 Ur Squamous Epith Cells 3-5 Urine Bacteria 2+ Hyaline Casts 0-2 Influenza Type A (PCR) NEGATIVE Influenza Type B (PCR) NEGATIVE RSV RNA Qual (PCR) NEGATIVE SARS-CoV-2 RNA (RT-PCR) NEGATIVE 07/28/25 03:48 WBC 6.9 RBC 4.10 L Hgb 12.7 Hct 39.4 MCV 96.1 MCH 31.0 MCHC 32.2 RDW 13.6 Plt Count 350 MPV 10.4 Immature Gran % (Auto) 0.4 Neut % (Auto) 93.4 H Lymph % (Auto) 5.4 L [place] % (Auto) 0.6 L Eos % (Auto) 0.1 Baso % (Auto) 0.1 Lymph # (Auto) 0.4 L [place] # (Auto) 0.0 L Eos # (Auto) 0.0 Baso # (Auto) 0.0 Abs Immat Gran (auto) 0.03 Absolute Neuts (auto) 6.4 Absolute Nucleated RBC 0.000 Nucleated RBC % (auto) 0.0 Smear Tech's Comments VERIFIED Sodium 140 Potassium 4.2 Chloride 112 H Carbon Dioxide 19 L Anion Gap 13 BUN 9 Creatinine 0.63 Estim Creat Clear Calc 124.5 Estimated GFR > 60 Random Glucose 174 H Calcium 9.1 Magnesium 2.3 Total Bilirubin AST ALT Alkaline Phosphatase Total Protein Albumin Beta HCG, Quant Urine Color Urine Appearance Urine pH Ur Specific [place] Urine Protein Urine Glucose (UA) Urine Ketones Urine Blood Urine Nitrite Ur Leukocyte Esterase Urine RBC Urine WBC Ur Squamous Epith Cells Urine Bacteria Hyaline Casts Influenza Type A (PCR) Influenza Type B (PCR) RSV RNA Qual (PCR) SARS-CoV-2 RNA (RT-PCR) Discharge Plan Discharge Anticipated Discharge Date/Time: 07/28/25 11:08 Patient Disposition: Home, Self-Care Discharge Diagnosis: Asthma exacerbation Referrals: Jairo Sorto MD [Physician, Pulmonology] - 1 Week Referral Note: Uncontrolled asthma Naomi Constantino MD [Primary Care Provider, Internal Medicine] - 1 Week Discharge Medications: New prednisone 20 mg Tablet 40 mg PO DAILY Qty: 8 0RF Rx Instructions: Take 40 mg daily for 4 days albuterol sulfate 2.5 mg /3 mL (0.083 %) Solution For Nebulization 2.5 mg inhalation Q2H PRN (Reason: Shortness Of Breath/Wheezing) Qty: 180 0RF albuterol sulfate [Ventolin HFA] 90 mcg/actuation HFA aerosol inhaler 1 puff inhalation QID PRN (Reason: shortness of breath or wheezing) Qty: 8.5 0RF Discharge Orders: Discharge Order (Routine); Ordered 07/28/25 Ordered By: Beatriz Sorto Diet: Advance to usual diet Activity on Discharge: As tolerated Stand Alone Forms: Patient Portal Discharge page Print Language: Vietnamese Care Plan Goals: Continue prednisone taper use albuterol inhaler as needed Follow up with pulmonology for management of asthma Health Concerns: Asthma exacerbation Plan of Treatment: Follow up with primary care provider as needed Take all medications as prescribed Assessment: See discharge summary
--- NOTE | 2025-07-28 10:09 | PC.NURSE ---
Patient did walk test in hallway with oxygen saturations >94%. Patient denies any shortness of breath.
--- NOTE | 2025-07-28 13:50 | MHC.CM.PN ---
pt dcd home self care prior to being seen by case management
== END 2025-07-28 11:40 | disposition home or self-care (01) | DRG 141 ==
LOC: HO.ED 21:20 → HO.EDOVER 07-28 00:37
PROVIDERS: Physician Assistant; Physician Assistant Medical; Admitting Provider Internal Medicine; Emergency Provider Emergency Medicine; PCP Internal Medicine; Visit Provider Nurse Practitioner Acute Care
DX: J45.51 Severe persistent asthma with (acute) exacerbation (principal); E66.811 Obesity, class 1; F17.210 Nicotine dependence, cigarettes, uncomplicated; Z20.822 Contact with and (suspected) exposure to COVID-19; Z71.6 Tobacco abuse counseling; R09.02 Hypoxemia; Z71.3 Dietary counseling and surveillance; Z68.32 Body mass index [BMI] 32.0-32.9, adult
CPT/HCPCS: 36415; 71046; 80048; 80053; 81001; 83735; 84702; 85025; 87637; 94640; 94664; 99221; 99285; J2919; J3475

== ENCOUNTER → 2025-07-27 19:13 | Outpatient (BNV) | payer OTHER, SELFPAY | PROVIDERS: Emergency Provider Emergency Medicine; PCP Internal Medicine; Visit Provider Radiology Diagnostic Radiology | DX: R05.9 Cough, unspecified (principal); R06.02 Shortness of breath | CPT/HCPCS: 71046 ==

== ENCOUNTER → 2025-07-27 23:59 | Outpatient (BNV) | payer OTHER, SELFPAY | PROVIDERS: Admitting Provider Internal Medicine; Emergency Provider Emergency Medicine; PCP Internal Medicine; Visit Provider Internal Medicine | DX: J45.51 Severe persistent asthma with (acute) exacerbation (principal); J96.01 Acute respiratory failure with hypoxia; F17.200 Nicotine dependence, unspecified, uncomplicated | CPT/HCPCS: 99222; 99499 ==